=== PATIENT | male | born 1990 | race Caucasian/White ===

== ENCOUNTER 2020-09-15 16:39 | Emergency (ER) | payer BC ==
[2020-09-15 17:11] VITALS: BP 121/75; PULSE 71; RESP 18; TEMP 98.2
[2020-09-15] MEDS ORDERED: KETOROLAC 15 MG/ML 1 ML VIAL IM STA (17:31)
[2020-09-15] MEDS ORDERED: HYDROcodone/APAP 5-325MG 1 EACH TAB PO STA (17:31)
[2020-09-15] MEDS ORDERED: LIDOCAINE 5% PATCH TOPICAL STA (17:31)
--- NOTE | 2020-09-15 18:53 | XR ---
Result: History: Back pain. Comparison: None available. Technique: Frontal and lateral views of the lumbar spine. Findings: The bone mineralization is normal. Images of the lumbar spine demonstrate 5 lumbar-type vertebrae. There is no acute fracture or sublux ation. The vertebral body heights are preserved throughout the imaged lumbar spine. There is grade 1 retrolisthesis at L5-S1. There is mild to moderate disc height narrowing at L4-S1. Impression: Mild to moderate lower lumbar spondylosis with grade 1 retrolisthesis at L5-S1.
--- NOTE | 2020-09-15 19:10 | ED ---
Back Pain HPI - General Chief Complaint: Back Pain/Injury Stated Complaint: Lower back pain Time Seen by Provider: 09/15/20 17:17 Source: patient Limitations: no limitations - History of Present Illness Initial Comments: 29-year-old male with history of chronic back pain since the emergency department with a chief complaint of back pain. Patient reports this started about one week ago after he was waxing the car. Patient reports there was no particular injury to the lower back region. He does report mid vertebral tenderness/pain radiating to right lower extremity. He denies any saddle anesthesia, urinary retention with overflow or bowel incontinence. Denies any weakness in the extremities. States this feels like his typical back pain but it was not taken away with ibuprofen. States he typically receives a course of steroids to help alleviate the symptoms. - Related Data Previous Rx's Medication Instructions Recorded predniSONE 50 mg PO DAILY #5 tab 09/15/20 Allergies Allergy/AdvReac Type Severity Reaction Status Date / Time No Known Allergies Allergy Verified 09/15/20 17:11 Review of Systems ROS Statement: Those systems with pertinent positive or pertinent negative responses have been documented in the HPI. ROS Other: All systems not noted in ROS Statement are negative. Past Medical History Past Medical History: No Reported History Past Psychological History: No Psychological Hx Reported Smoking Status: Never smoker Past Alcohol Use History: Occasional Past Drug Use History: None Reported General Exam Limitations: no limitations General appearance: alert, in no apparent distress, obese Head exam: Present: atraumatic, normocephalic, normal inspection Eye exam: Present: normal appearance, PERRL, EOMI Pupils: Present: normal accommodation ENT exam: Present: normal exam, normal oropharynx, mucous membranes moist, TM's normal bilaterally, normal external ear exam Neck exam: Present: normal inspection, full ROM. Absent: tenderness Respiratory exam: Present: normal lung sounds bilaterally. Absent: respiratory distress, wheezes, rales, rhonchi, stridor, chest wall tenderness, accessory muscle use Cardiovascular Exam: Present: regular rate, normal rhythm, normal heart sounds. Absent: systolic murmur GI/Abdominal exam: Present: soft. Absent: distended, tenderness, guarding, rebound Extremities exam: Present: normal inspection, full ROM, normal capillary refill, other (Palpable DP and PT bilaterally). Absent: tenderness, pedal edema, joint swelling, calf tenderness Back exam: Present: normal inspection, full ROM, tenderness, paraspinal tenderness (Right-sided paraspinal tenderness in the lumbosacral region), vertebral tenderness. Absent: CVA tenderness (R), CVA tenderness (L), muscle spasm Neurological exam: Present: alert, oriented X3, CN II-XII intact, normal gait Psychiatric exam: Present: normal affect, normal mood Skin exam: Present: warm, dry, intact, normal color Course Vital Signs 09/15/20 17:08 Temperature 98.2 F Pulse Rate 71 Respiratory 18 Rate Blood Pressure 121/75 O2 Sat by Pulse 98 Oximetry Medical Decision Making - Medical Decision Making 29-year-old male with history of chronic back pain presents to the emergency department with a chief complaint of back pain. On physical examination, no concern for cauda equina at this time. Positive right-sided leg raise test. X- ray of the lumbar spine reveals mild to moderate lower lumbar spondylosis with grade 1 retrolithiasis at L5-S1. Patient was given Toradol, Lidoderm patch, Joseph. On reevaluation, patient reports improvement in his symptoms. He will be discharged with a prednisone 5 day course of 50 mg. He has an appointment next week to follow-up with . Case discussed with Dr. Sotelo Disposition Clinical Impression: Mechanical back pain Disposition: HOME SELF-CARE Condition: Stable Instructions (If sedation given, give patient instructions): Acute Low Back Pain (ED) Additional Instructions: Please return to the Emergency Department if symptoms worsen or any other concerns. Follow-up with the orthopedic surgeon. Prescriptions: predniSONE 50 mg PO DAILY #5 tab Is patient prescribed a controlled substance at d/c from ED?: No Referrals: Fran De Jesus DO [Primary Care Provider] - 1-2 days Time of Disposition: 19:09
== END 2020-09-15 19:14 | disposition home or self-care (01) ==
LOC: EC 16:39
DX: M47.816 Spondylosis without myelopathy or radiculopathy, lumbar region (principal); M43.16 Spondylolisthesis, lumbar region
CPT/HCPCS: 72100; 99283; 96372; J1885

== ENCOUNTER 2021-09-11 21:56 | Emergency (ER) | payer BC ==
[2021-09-11 22:17] VITALS: PULSE 66; RESP 18; TEMP 98.3
[2021-09-12] MEDS ORDERED: DIAZEPAM 5 MG/ML 2 ML INJ IM ONE (01:26)
[2021-09-12] MEDS ORDERED: KETOROLAC 15 MG/ML 1 ML VIAL IM STA (01:26)
--- NOTE | 2021-09-12 01:29 | ED ---
General Adult HPI - General Chief complaint: Back Pain/Injury Stated complaint: Back Pain Time Seen by Provider: 09/12/21 01:20 Source: patient, family, RN notes reviewed, old records reviewed Mode of arrival: wheelchair Limitations: no limitations - History of Present Illness Initial comments: 30-year-old male presents with complaints of low back pain. Patient states his back started getting tight when he was working out at the gym. He states when he got home it continued to get tight and now the pain is unbearable. Patient does have a history of degenerative disc disease and bulging disks since high school. He denies any fevers, no recent trauma, no bowel or bladder incontinence. He denies any shooting pain down his legs. -: hour(s) Location: back (lumbar) Radiation: non-radiation Severity scale (1-10): 10 Quality: constant, other (tight) Consistency: constant Improves with: none Worsens with: movement Associated Symptoms: denies other symptoms - Related Data Previous Rx's Medication Instructions Recorded predniSONE 50 mg PO DAILY #5 tab 09/15/20 Cyclobenzaprine [Flexeril] 10 mg PO TID PRN #15 tab 09/12/21 Ibuprofen [Motrin] 800 mg PO Q6HR #30 tab 09/12/21 Lidocaine 5% Patch [Lidoderm] 1 patch TOPICAL DAILY PRN 10 Days 09/12/21 #10 patch Allergies Allergy/AdvReac Type Severity Reaction Status Date / Time No Known Allergies Allergy Verified 09/15/20 17:11 Review of Systems ROS Statement: Those systems with pertinent positive or pertinent negative responses have been documented in the HPI. ROS Other: All systems not noted in ROS Statement are negative. Past Medical History Past Medical History: No Reported History Additional Past Medical History / Comment(s): back injury History of Any Multi-Drug Resistant Organisms: None Reported Additional Past Surgical History / Comment(s): sadi sanchez Past Psychological History: No Psychological Hx Reported Smoking Status: Never smoker Past Alcohol Use History: Occasional Past Drug Use History: None Reported General Exam Limitations: no limitations General appearance: alert, in no apparent distress Neck exam: Present: normal inspection. Absent: tenderness, meningismus Respiratory exam: Present: normal lung sounds bilaterally. Absent: respiratory distress, accessory muscle use Cardiovascular Exam: Present: regular rate GI/Abdominal exam: Present: soft Back exam: Present: normal inspection, tenderness (Lumbar spine), muscle spasm, paraspinal tenderness. Absent: vertebral tenderness, rash noted Expanded Back exam: Absent: saddle anesthesia Neurological exam: Present: alert, oriented X3 Psychiatric exam: Present: normal affect, normal mood Skin exam: Present: warm, intact, normal color. Absent: cyanosis, petechiae, pallor Course Vital Signs 09/11/21 09/12/21 22:15 01:16 Temperature 98.3 F Pulse Rate 66 66 Respiratory 18 18 Rate Blood Pressure 115/65 120/69 O2 Sat by Pulse 98 97 Oximetry Medical Decision Making - Medical Decision Making Patient presents with 1 day of back pain. He denies any injury. He has a history of similar back pain. Patient has paraspinal lumbar spine tenderness with no red flag signs. No bowel or bladder incontinence, no fever, no saddle anesthesia. Patient was given Valium and Toradol injections and lidoderm patch applied. He is agreeable to be discharged home with Flexeril, Motrin and Lidoderm patches and will follow up with his primary care doctor. He was advised to do low back exercises once his pain resolves. Follow up with his primary care doctor next week. Case discussed with Dr. Patel Disposition Clinical Impression: Back pain Disposition: HOME SELF-CARE Condition: Good Instructions (If sedation given, give patient instructions): Acute Low Back Pain (ED), Lower Back Exercises (ED) Additional Instructions: Use Flexeril and Motrin as prescribed and also use the Lidoderm patches as prescribed for pain relief. Follow-up with the primary care doctor next week. Return to the emergency room with any new or concerning symptoms. Prescriptions: Cyclobenzaprine [Flexeril] 10 mg PO TID PRN #15 tab PRN Reason: Muscle Spasm Lidocaine 5% Patch [Lidoderm] 1 patch TOPICAL DAILY PRN 10 Days #10 patch PRN Reason: Pain Ibuprofen [Motrin] 800 mg PO Q6HR #30 tab Is patient prescribed a controlled substance at d/c from ED?: No Referrals: Fran De Jesus DO [Primary Care Provider] - 1-2 days Time of Disposition: 02:04
[2021-09-12 01:46] VITALS: BP 120/69
[2021-09-12] MEDS ORDERED: LIDOCAINE 5% PATCH TOPICAL STA (02:06)
== END 2021-09-12 02:39 | disposition home or self-care (01) ==
LOC: EC 21:56
DX: M54.50 Low back pain, unspecified (principal)
CPT/HCPCS: 99283; 96372 ×2; J3360; J1885

== ENCOUNTER 2022-09-27 10:38 | Day surgery (SDC) | payer BC, MEDICAID ==
[2022-09-25 15:49] VITALS: BMI 37.5
[~2022-09-27 10:38] MED LIST: LACTATED RINGERS 1,000 ML IV SCH
[2022-09-27 11:03] VITALS: RESP 16; TEMP 97
[2022-09-27] MEDS ORDERED: LIDOCAINE 1% (10MG/ML) FOR IV START INTRADERMA ONE (11:03)
[2022-09-27] MEDS ORDERED: PROPOFOL 10 MG/ML 20 ML VIAL IV ONE (12:04)
--- NOTE | 2022-09-27 12:21 | P.PCN ---
Date of Procedure: 09/27/22 Procedure(s) Performed: BRIEF HISTORY: Patient is a 31-year-old pleasant white male scheduled for an elective colonoscopy as a part of evaluation of intermittent rectal bleeding. PROCEDURE PERFORMED: Colonoscopy. PREOPERATIVE DIAGNOSIS: Intermittent rectal bleeding. IV sedation per Anesthesia. PROCEDURE: After informed consent was obtained, the patient, was brought into the endoscopy unit. IV sedation was administered by Anesthesia under continuous monitoring. Digital rectal examination was normal. Initially the Olympus CF-160 flexible video colonoscope was then inserted in the rectum, gradually advanced into the cecum without any difficulty. Careful examination was performed as the scope was gradually being withdrawn. Ileocecal valve and the appendiceal orifice were visualized and appeared normal. Prep was excellent. Mucosa of the cecum, ascending colon, transverse colon, descending colon, sigmoid colon, and rectum appeared normal. Retroflexion was performed in the rectum and small internal hemorrhoids were seen. The patient tolerated the procedure well. IMPRESSION: Normal-appearing colon from rectum to cecum with no evidence of colorectal neoplasia Small internal hemorrhoids . RECOMMENDATIONS: Findings of this examination were discussed with the patient as well as his family. He was advised to be a high-fiber diet and take fiber supplements a regular basis. Recommend repeat screening colonoscopy at age 44
[2022-09-27 12:50] VITALS: BP 117/77; PULSE 51
== END 2022-09-27 13:07 | disposition home or self-care (01) ==
LOC: ORWHC2ENDO 10:38
PROVIDERS: ATTEND Internal Medicine Gastroenterology
DX: K62.5 Hemorrhage of anus and rectum (principal); K64.8 Other hemorrhoids; Z79.899 Other long term (current) drug therapy
CPT/HCPCS: 45378; J2704